=== PATIENT | female | born 1985 | race African-American/Black ===

== ENCOUNTER 2016-08-03 15:45 | Emergency (ER) | payer MEDICAID ==
[~2016-08-03] VITALS: Ht 154.9 cm; Wt 42.2 kg
[2016-08-03 20:58] LABS: Basophils # (auto) 0 uL; Basophils % (auto) 0.4 % (0.0-2.0); Eosinophils # (auto) 0.2 uL; Eosinophils % (auto) 2.2 % (0.0-7.0); Hematocrit 39.1 % (36.0-46.0); Hemoglobin 12.9 g/dL (12.2-16.2); Lymphocytes # (auto) 3.6 uL; Lymphocytes % (auto) 45.4 % (10.0-50.0); Mean Corpuscular Hemoglobin 31.5 pg (28.0-32.0); Mean Corpuscular Volume 95.6 fL (80.0-100.0); Mean Platelet Volume 8.5 fL (7.4-10.4); Monocytes # (auto) 0.6 uL; Monocytes % (auto) 7.5 % (0.0-12.0); Neutrophils # (auto) 3.5 uL; Neutrophils % (auto) 44.5 % (37.0-80.0); Platelet Count (auto) 301 10^3/uL (140-450); Red Cell Distribution Width 12.9 % (11.6-16.0); White Blood Cell 7.8 10^3/uL (4.4-10.8)
[2016-08-03 21:30] LABS: Calcium 8.9 mg/dL (8.5-10.1); Potassium 4.3 mmol/L (3.5-5.1)
[2016-08-03 21:33] LABS: Albumin 3.7 g/dL (3.4-5.0); BUN/Creatinine Ratio 26.1
[2016-08-03 21:35] LABS: Bilirubin, Total 0.9 mg/dL (0.2-1.0)
[2016-08-03 22:49] VITALS: BP 97/52
[2016-08-05 03:06] LABS: Thyroxine (T4) 5.7 ug/dL (4.5-12.0)
== END 2016-08-03 23:20 | disposition home or self-care (01) ==
LOC: ER 15:45
DX: R22.1 Localized swelling, mass and lump, neck (principal); E04.9 Nontoxic goiter, unspecified
CPT/HCPCS: 36415; 70360; 80053; 84443; 85025